=== PATIENT | female | born 1930 | race Caucasian/White ===

== ENCOUNTER 2018-07-17 22:10 | Inpatient (IN) ==
[2018-07-17] MEDS ORDERED: ONDANSETRON 4 MG/2 ML VIAL IV STA (23:24)
[2018-07-17] MEDS ORDERED: SODIUM CHLORIDE 0.9% 500 ML IV STA (23:24)
[2018-07-17 23:52] LABS: INR 0.9; PT Patient Result 10.3 SECS
[2018-07-17 23:53] LABS: Basophils % 0.6 % (0.0-0.8); Eosinophils % 0.3 % (0.00-10.9); Hematocrit 37.6 VOL% (35.7-47.0); Hemoglobin 12.3 GM/DL (12.0-16.0); Immature Granulocytes % 0.3 %; Immature Granulocytes Absolute 0.02 #; Lymphocytes # 0.9 10*3/uL (1.4-4.0); Lymphocytes % 12.3 % (21.3-54.2); Mean Corpuscular HGB Conc 32.7 GM/DL (32-36); Mean Corpuscular Hemoglobin 31 PG (27-34); Mean Corpuscular Volume 95.4 FL (87-102); Mean Platelet Volume 9.6 FL (9.6-12.0); Monocytes # 0.6 10*3/uL (0.11-0.8); Monocytes % 9.3 % (1.7-12.7); Neutrophils # 5.3 10*3/uL (1.4-7.4); Neutrophils % 77.2 % (38.7-73.9); Platelet Count 202 T/CUMM (130-400); Red Blood Count 3.94 MC/CUMM (3.8-5.5); Red Cell Distribution Width 12.3 % (9.3-17.3); White Blood Count 6.9 T/CUMM (4-12)
[2018-07-17 23:54] LABS: Alanine Aminotransferase 20 U/L (13-56); Alkaline Phosphatase 61 U/L (45-117); Aspartate Amino Transferase 26 U/L (0-37); Blood Urea Nitrogen 16 MG/DL (7-18); Calcium 8.8 MG/DL (8.5-10.1); Glucose 116 MG/DL (74-106); Osmolality,Calculated 269.2 MOS/KG (273-304); Potassium 3.5 MMOL/L (3.5-5.1); Sodium 134 MMOL/L (136-145); Total Protein 8.1 G/DL (6.4-8.3); Troponin I < 0.015 NG/ML (0.00-0.045)
[2018-07-18 00:39] LABS: Apearance,Urine CLOUDY (Clear); Bilirubin,Urine Negative (Negative); Blood, Urine Small mg/dL (Negative); Glucose,Urine (UA) Negative (Negative); Ketones,Urine Negative (Negative); Nitrite,Urine Negative (Negative); Protein,Urine Negative; Urine Color Yellow (Yellow); Urine Specific Gravity 1.015 (1.001-1.035); Urine Urobilinogen < 2.0 EU/DL (0.2-1.0)
[2018-07-18] MEDS ORDERED: MORPHINE 4 MG/1 ML VIAL IV PRN (01:05)
[2018-07-18] MEDS ORDERED: ALBUTEROL/IPRATROPIUM 3 ML NEB RESP TX PRN (01:05)
[2018-07-18] MEDS ORDERED: NICOTINE 21 MG/24 HR PATCH TRANSDERM PRN (01:05)
[2018-07-18] MEDS ORDERED: BICILLIN LA 1,200,000 UNIT/2 ML SYRINGE IM STA (01:05)
[2018-07-18] MEDS ORDERED: ONDANSETRON 4 MG/2 ML VIAL IV PRN (01:05)
[2018-07-18] MEDS ORDERED: diphenhydrAMINE CAP 25 MG CAPSULE PO PRN (01:05)
[2018-07-18] MEDS ORDERED: MECLIZINE 25 MG TABLET PO PRN (01:05)
[2018-07-18] MEDS ORDERED: guaiFENesin/DM ER 600-30 MG TABLET PO PRN (01:05)
[2018-07-18] MEDS ORDERED: cefTRIAXone 1,000 MG in SYRINGE 1 EACH IV SCH (02:00)
[2018-07-18] MEDS: SODIUM CHLORIDE 0.9% 1,000 ML IV SCH ×3 (03:34→22:06)
[2018-07-18] MEDS: AZITHROMYCIN INJ 500 MG in SODIUM CHLORIDE 0.9% 250 ML IV SCH ×2 (03:34→06:04)
[2018-07-18] MEDS ORDERED: SODIUM CHLORIDE 0.9% 500 ML IV ONE (03:55)
[2018-07-18 06:15] LABS: Basophils % 0.2 % (0.0-0.8); Eosinophils % 0.7 % (0.00-10.9); Hematocrit 33.7 VOL% (35.7-47.0); Hemoglobin 10.8 GM/DL (12.0-16.0); Immature Granulocytes % 0.9 %; Immature Granulocytes Absolute 0.04 #; Lymphocytes % 22.9 % (21.3-54.2); Mean Corpuscular Hemoglobin 31 PG (27-34); Mean Corpuscular Volume 97.1 FL (87-102); Mean Platelet Volume 9.6 FL (9.6-12.0); Monocytes # 0.1 10*3/uL (0.11-0.8); Monocytes % 2.3 % (1.7-12.7); Neutrophils # 3.2 10*3/uL (1.4-7.4); Platelet Count 157 T/CUMM (130-400); Red Blood Count 3.47 MC/CUMM (3.8-5.5); Red Cell Distribution Width 12.4 % (9.3-17.3); White Blood Count 4.4 T/CUMM (4-12)
[2018-07-18] MEDS ORDERED: ALBUTEROL/IPRATROPIUM 3 ML NEB RESP TX SCH (07:00)
[2018-07-18] MEDS: ALBUTEROL/IPRATROPIUM 3 ML NEB RESP TX SCH ×5 (07:20→22:58)
[2018-07-18] MEDS: PANTOPRAZOLE 40 MG TABLET PO SCH (08:20)
[2018-07-18] MEDS: ACETAMINOPHEN 325 MG TABLET PO PRN ×2 (12:16→17:05)
[2018-07-18] MEDS: CIPROFLOXACIN INJ 400 MG in PREMIX 1 EACH IV SCH (14:31)
[2018-07-18] MEDS ORDERED: SERTRALINE 100 MG TABLET PO SCH (21:00)
[2018-07-18] MEDS: MEMANTINE 10 MG TABLET PO SCH (22:07)
[2018-07-18] MEDS: POTASSIUM CHLORIDE 10 MEQ TABLET PO SCH (22:07)
[2018-07-19] MEDS: ALBUTEROL/IPRATROPIUM 3 ML NEB RESP TX SCH ×6 (02:43→23:35)
[2018-07-19] MEDS: SODIUM CHLORIDE 0.9% 1,000 ML IV SCH ×2 (08:09→13:22)
[2018-07-19] MEDS: CETIRIZINE 10 MG TABLET PO SCH (08:10)
[2018-07-19] MEDS: MEMANTINE 10 MG TABLET PO SCH ×2 (08:10→21:26)
[2018-07-19] MEDS: DONEPEZIL 10 MG TABLET PO SCH (08:10)
[2018-07-19] MEDS: PANTOPRAZOLE 40 MG TABLET PO SCH (08:10)
[2018-07-19] MEDS: POTASSIUM CHLORIDE 10 MEQ TABLET PO SCH ×3 (08:10→21:26)
[2018-07-19] MEDS ORDERED: LEVOTHYROXINE 88 MCG TABLET PO SCH (09:00)
[2018-07-19] MEDS: PHENOL 1.4% THROAT SPRAY 177 ML BOTTLE PO PRN ×4 (10:37→21:28)
[2018-07-19 11:34] LABS: Basophils % 0.7 % (0.0-0.8); Eosinophils # 0.1 10*3/uL (0.0-0.87); Eosinophils % 1.6 % (0.00-10.9); Hemoglobin 10.1 GM/DL (12.0-16.0); Immature Granulocytes % 0.4 %; Immature Granulocytes Absolute 0.02 #; Lymphocytes # 1.8 10*3/uL (1.4-4.0); Lymphocytes % 33.1 % (21.3-54.2); Mean Corpuscular HGB Conc 32.6 GM/DL (32-36); Mean Corpuscular Hemoglobin 32 PG (27-34); Mean Corpuscular Volume 97.8 FL (87-102); Mean Platelet Volume 9.1 FL (9.6-12.0); Monocytes # 0.8 10*3/uL (0.11-0.8); Monocytes % 14.6 % (1.7-12.7); Neutrophils # 2.7 10*3/uL (1.4-7.4); Neutrophils % 49.6 % (38.7-73.9); Platelet Count 137 T/CUMM (130-400); Red Blood Count 3.17 MC/CUMM (3.8-5.5); Red Cell Distribution Width 12.9 % (9.3-17.3); White Blood Count 5.5 T/CUMM (4-12)
[2018-07-19 11:47] LABS: Calcium 7.5 MG/DL (8.5-10.1); Osmolality,Calculated 278.3 MOS/KG (273-304); Potassium 3.4 MMOL/L (3.5-5.1)
[2018-07-19] MEDS: ENOXAPARIN 30 MG/0.3 ML SYRINGE SUBCUT SCH (13:18)
[2018-07-19] MEDS: CIPROFLOXACIN INJ 400 MG in PREMIX 1 EACH IV SCH ×2 (13:18)
[2018-07-19] MEDS: BISACODYL 5 MG TABLET PO PRN (15:58)
[2018-07-20] MEDS: CIPROFLOXACIN INJ 400 MG in PREMIX 1 EACH IV SCH ×2 (00:56→13:41)
[2018-07-20] MEDS: ALBUTEROL/IPRATROPIUM 3 ML NEB RESP TX SCH ×7 (03:19→22:03)
[2018-07-20 04:53] LABS: Basophils % 0.4 % (0.0-0.8); Eosinophils # 0.2 10*3/uL (0.0-0.87); Eosinophils % 3.1 % (0.00-10.9); Hematocrit 33.1 VOL% (35.7-47.0); Hemoglobin 10.6 GM/DL (12.0-16.0); Immature Granulocytes % 0.4 %; Immature Granulocytes Absolute 0.02 #; Lymphocytes # 2.2 10*3/uL (1.4-4.0); Lymphocytes % 41.8 % (21.3-54.2); Mean Corpuscular Hemoglobin 32 PG (27-34); Mean Corpuscular Volume 98.2 FL (87-102); Mean Platelet Volume 9.6 FL (9.6-12.0); Monocytes # 0.7 10*3/uL (0.11-0.8); Monocytes % 12.9 % (1.7-12.7); Neutrophils # 2.2 10*3/uL (1.4-7.4); Neutrophils % 41.4 % (38.7-73.9); Platelet Count 148 T/CUMM (130-400); Red Blood Count 3.37 MC/CUMM (3.8-5.5); Red Cell Distribution Width 13.1 % (9.3-17.3); White Blood Count 5.2 T/CUMM (4-12)
[2018-07-20 05:18] LABS: Osmolality,Calculated 278.3 MOS/KG (273-304); Potassium 3.7 MMOL/L (3.5-5.1); Thyroid Stimulating Hormone 4.87 uIU/ml (0.358-3.74)
[2018-07-20] MEDS: LEVOTHYROXINE 88 MCG TABLET PO SCH (06:02)
[2018-07-20] MEDS: CETIRIZINE 10 MG TABLET PO SCH (08:47)
[2018-07-20] MEDS: POTASSIUM CHLORIDE 10 MEQ TABLET PO SCH ×3 (08:48→21:58)
[2018-07-20] MEDS: PANTOPRAZOLE 40 MG TABLET PO SCH (08:48)
[2018-07-20] MEDS: MEMANTINE 10 MG TABLET PO SCH ×2 (08:48→21:59)
[2018-07-20] MEDS: DONEPEZIL 10 MG TABLET PO SCH (08:48)
[2018-07-20] MEDS: BISACODYL 5 MG TABLET PO PRN (08:57)
[2018-07-20] MEDS: SODIUM CHLORIDE 0.9% 1,000 ML IV SCH (10:31)
[2018-07-20] MEDS: ENOXAPARIN 30 MG/0.3 ML SYRINGE SUBCUT SCH (11:51)
[2018-07-20] MEDS ORDERED: BISACODYL 10 MG SUPP RECTAL ONE (13:16)
[2018-07-20] MEDS: POLYETHYLENE GLYCOL POWDER 17 GM PACK PO SCH (14:02)
[2018-07-20] MEDS ORDERED: MAGNESIUM SULF RIDER 4 GM in PREMIX 1 EACH IV PRN (14:59)
[2018-07-20] MEDS: MAGNESIUM SULF RIDER 2 GM in PREMIX 1 EACH IV PRN ×2 (15:50→18:14)
[2018-07-20] MEDS ORDERED: CLORAZEPATE 3.75 MG TABLET PO PRN (17:46)
[2018-07-20] MEDS ORDERED: SERTRALINE 50 MG TABLET PO SCH (21:00)
[2018-07-20] MEDS: ACETAMINOPHEN 325 MG TABLET PO PRN (21:58)
[2018-07-21] MEDS: CIPROFLOXACIN INJ 400 MG in PREMIX 1 EACH IV SCH
[2018-07-21] MEDS: LEVOTHYROXINE 88 MCG TABLET PO SCH (07:29)
[2018-07-21] MEDS: ALBUTEROL/IPRATROPIUM 3 ML NEB RESP TX SCH (07:32)
[2018-07-21] MEDS: PANTOPRAZOLE 40 MG TABLET PO SCH (08:35)
[2018-07-21] MEDS: MEMANTINE 10 MG TABLET PO SCH (08:35)
[2018-07-21] MEDS: DONEPEZIL 10 MG TABLET PO SCH (08:35)
[2018-07-21] MEDS: CETIRIZINE 10 MG TABLET PO SCH (08:36)
[2018-07-21] MEDS: POTASSIUM CHLORIDE 10 MEQ TABLET PO SCH (08:36)
[2018-07-21] MEDS: SODIUM CHLORIDE 0.9% 1,000 ML IV SCH (08:37)
[2018-07-21] MEDS: POLYETHYLENE GLYCOL POWDER 17 GM PACK PO SCH (08:37)
[2018-07-21 09:20] VITALS: BP 145/74
[2018-07-22] MEDS ORDERED: LEVOTHYROXINE 100 MCG TABLET PO SCH (06:30)
== END 2018-07-21 10:13 | disposition home health service (06) | DRG 690 ==
LOC: N.EDINP 22:10 → N.ED 22:10 → SUATTDRO 07-18 01:05 → N.5E 07-18 01:38 → SUATTDRO 07-19 13:09
PROVIDERS: ADMIT Internal Medicine; ATTEND Hospitalist